=== PATIENT | male | born 1980 | race African-American/Black ===

== ENCOUNTER 2020-06-08 23:52 | Emergency (ER) | payer SELFPAY ==
[~2020-06-08] VITALS: Ht 177.8 cm; Wt 102.0 kg
[2020-06-08 23:55] VITALS: BP 152/93
[2020-06-09] MEDS ORDERED: KETOROLAC 30MG/ML VIAL IM ONE (00:45)
== END 2020-06-09 01:30 | disposition home or self-care (01) ==
LOC: ER 23:52
DX: G44.209 Tension-type headache, unspecified, not intractable (principal); G43.909 Migraine, unspecified, not intractable, without status migrainosus
CPT/HCPCS: 96372; 99283; J1885